=== PATIENT | female | born 1975 | race Caucasian/White ===

== ENCOUNTER → 2017-05-22 | Outpatient (CLI) | payer OTHER ==
[~2017-05-22] MED LIST: IBUP-1050 PO; PRENTAB26 PO
--- NOTE | 2017-05-25 07:35 | MAMMOGRAPHY REPORT ---
BILATERAL DIGITAL SCREENING MAMMOGRAM TOMOSYNTHESIS WITH CAD: 05/22/2017 CLINICAL HISTORY: Routine screening. Patient has no complaints. TECHNIQUE: Breast tomosynthesis in addition to standard 2D mammography was performed. Current study was also evaluated with a Computer Aided Detection (CAD) system. COMPARISON: Comparison is made to exams dated: 05/08/2016 mammogram, 05/16/2015 ultrasound, 05/04/20 15 mammogram, 05/31/2014 stereotactic biopsy, 05/31/2014 mammogram, and 05/03/2014 mammogram - [facility]. BREAST COMPOSITION: The tissue of both breasts is extremely dense, which lowers the sensitivity of m ammography. FINDINGS: No suspicious masses, calcifications, or areas of architectural distortion are noted in ei ther breast. There has been no significant interval change compared to prior exams. A biopsy marker clip is again noted in the left 12:00 breast; previously biopsied calcifications in the left 12:00 br east are not significantly changed. Fluctuating circumscribed benign-appearing masses are again note d bilaterally, best seen on the tomosynthesis images, which are considered benign given the multiplic ity and bilaterality and likely represent cysts, with cysts seen within the right breast on the prior 2014 ultrasound exam. Other scattered bilateral benign-appearing calcifications are not significant ly changed. IMPRESSION: ACR BI-RADS CATEGORY 2: BENIGN There is no mammographic evidence of malignancy. A 1 year screening mammogram is recommended. The pa tient will receive written notification of the results. Approximately 10% of breast cancers are not detected with mammography. A negative mammographic report should not delay biopsy if a clinically suggestive mass is present. Gunjan Miller M.D. ah/:05/22/2017 16:44:06 Graphic Illustrator: Liz SOLORZANO(Maddy)(M), [facility] letter sent: Normal 1/2 BI-RADS Code: ACR BI-RADS Category 2: Benign
== END | disposition home or self-care (01) ==
LOC: C.MAMM 16:25
PROVIDERS: ATTEND Family Medicine
DX: Z12.31 Encounter for screening mammogram for malignant neoplasm of breast (principal)